=== PATIENT | female | born 1990 | race Caucasian/White ===

== ENCOUNTER 2016-10-19 18:24 | Emergency (ER) | payer OTHER ==
[~2016-10-19] VITALS: Ht 165.1 cm; Wt 59.0 kg
[2016-10-19] MEDS ORDERED: DEXAMETHASONE 4 MG TABLET PO STA (19:19)
[2016-10-19] MEDS ORDERED: IBUPROFEN 400 MG TABLET. PO ONE (19:30)
[2016-10-19] MEDS ORDERED: diphenhydrAMINE HCL 25 MG CAPSULE PO ONE (19:30)
[2016-10-19] MEDS ORDERED: ONDANSETRON ODT 4 MG TAB.RAPDIS. PO ONE (19:30)
[2016-10-19 19:55] VITALS: BP 111/79
[2016-10-19] MEDS ORDERED: PROM12.56 PO (20:13)
--- NOTE | 2016-10-19 20:13 | PHYS DOC ---
Past Medical History Past Medical History: No Pertinent History Past Surgical History: Cholecystectomy, , Tonsillectomy Alcohol Use: Occasionally Drug Use: None Adult General Chief Complaint Chief Complaint: ALLERGIC REACTION HPI HPI Patient is a 26 year old female who presents with 4 days of bilateral periobital swelling/redness/darkening associated with dry cough, rhinorrhea, scratchy throat, nausea and nonbloody diarrhea. Also has frontal achy headache and slight lightheadedness with standing. States she has taken benadryl intermittently with improvement of symptoms. She thinks it started after eating food at a restaurant, but does not know a known exposure. She denies fever or chills, abdominal pain, dysuria, hematuria, vomiting, dizziness, vision changes, numbness, tingling, focal weakness. Review of Systems Review of Systems Constitutional: Denies fever or chills [] Eyes: Denies change in visual acuity, redness, or eye pain [] HENT: Denies nasal congestion or sore throat [] Respiratory: Denies shortness of breath [] Cardiovascular: No additional information not addressed in HPI [] GI: Denies abdominal pain, vomiting, bloody stools or diarrhea [] : Denies dysuria or hematuria [] Musculoskeletal: Denies back pain or joint pain [] Integument: Denies skin lesions [] Neurologic: Denies focal weakness or sensory changes [] Endocrine: Denies polyuria or polydipsia [] Current Medications Current Medications Current Medications Medications (Trade) Dose Ordered Sig/Bryce Start Time Stop Time Status Last Admin Dose Admin Dexamethasone (Decadron) 10 mg 1X STAT 10/19/16 19:19 10/19/16 19:23 DC 10/19/16 19:38 10 MG Diphenhydramine HCl (Benadryl) 25 mg 1X ONCE 10/19/16 19:30 10/19/16 19:31 DC 10/19/16 19:37 25 MG Ibuprofen (Motrin) 400 mg 1X ONCE 10/19/16 19:30 10/19/16 19:31 DC 10/19/16 19:37 400 MG Ondansetron HCl (Zofran Odt) 4 mg 1X ONCE 10/19/16 19:30 10/19/16 19:31 DC 10/19/16 19:38 4 MG Allergies Allergies Allergies Coded Allergies Type Severity Reaction Last Updated Verified No Known Drug Allergies 12/13/13 No Physical Exam Physical Exam Constitutional: Well developed, well nourished, no acute distress, non-toxic appearance. [] HENT: Normocephalic, atraumatic, bilateral external ears normal, oropharynx moist, no oral exudates, nose normal. [] Eyes: PERRLA, EOMI, conjunctiva normal, no discharge. Left greater than right periorbital darkening and redness and swelling with no tenderness/induration/ crepitance/fluctuance [] Neck: Normal range of motion, no tenderness, supple, no stridor. [] Cardiovascular:Heart rate regular rhythm [] Lungs & Thorax: Bilateral breath sounds clear to auscultation [] Abdomen: Bowel sounds normal, soft, no tenderness. [] Skin: Warm, dry, no erythema, no rash. [] Back: No tenderness, no CVA tenderness. [] Extremities: No tenderness, ROM intact, no edema. [] Neurologic: Alert and oriented X 3, normal motor function, normal sensory function, no focal deficits noted, cranial nerves II through XII intact. [] Psychologic: Affect normal, judgement normal, mood normal. [] Current Patient Data Vital Signs Vital Signs Date Time Temp Pulse Resp B/P (MAP) Pulse Ox O2 Delivery O2 Flow Rate FiO2 10/19/16 19:55 84 16 111/79 (90) 96 Room Air 10/19/16 19:01 98.6 98.6 Lab Values Laboratory Tests Test 10/19/16 17:57 POC Urine HCG, Qualitative Hcg negative (Negative) Course & Med Decision Making Course & Med Decision Making Symptoms concerning for viral illness versus environmental allergy. She feels better after medications here. Discussed supportive care. Return precautions given. She understands and agrees with plan. Dragon Disclaimer [place] Disclaimer This electronic medical record was generated, in whole or in part, using a voice recognition dictation system. Departure Departure Impression: Primary Impression: Upper respiratory infection Additional Impression: Diarrhea Disposition: HOME, SELF-CARE Condition: STABLE Referrals: NO PCP (PCP) Patient Instructions: Upper Respiratory Infection, Adult, [id number] Additional Instructions: Take promethazine as needed for nausea. Take Claritin for possible seasonal allergies. Take Tylenol or ibuprofen as needed for pain. Drink liquids to stay hydrated. Follow-up with your primary care doctor. Return for any concerns. Scripts Promethazine Hcl (PROMETHAZINE HCL) 12.5 Mg Tablet 1 TAB PO Q6-8HRS Y for NAUSEA, #10 TAB 0 Refills Prov: Sheila PETERS MD 10/19/16 Problem Qualifiers Primary Impression: Upper respiratory infection URI type: unspecified viral URI Qualified Codes: J06.9 - Acute upper respiratory infection, unspecified; B97.89 - Other viral agents as the cause of diseases classified elsewhere Additional Impression: Diarrhea Diarrhea type: unspecified type Qualified Codes: R19.7 - Diarrhea, unspecified Sheila PETERS MD Oct 19, 2016 20:13
--- NOTE | 2016-10-20 11:05 | EKG ---
[facility] [address] [place] [address] Test Date: 2016-10-19 Test Time: 18:52:31 Pat Name: BRYAN RG Department: Room: Gender: F Safety Supervisor: : 1990 Requested By: Sheila PETERS Order Number: [id number] Reading MD: Autumn Jimenes Measurements Intervals Spencer Rate: 78 P: 58 CO: 146 QRS: 66 QRSD: 86 T: -13 QT: 374 QTc: 430 Interpretive Statements SINUS RHYTHM T ABNORMALITY IN INFERIOR LEADS ABNORMAL ECG RI6.01 No previous ECG available for comparison Electronically Signed On 10-20-2016 19:42:31 CDT by Autumn Jimenes
== END 2016-10-19 20:21 | disposition home or self-care (01) ==
LOC: ER 18:24
DX: J06.9 Acute upper respiratory infection, unspecified (principal); R19.7 Diarrhea, unspecified; R51 Headache; R42 Dizziness and giddiness; Z90.49 Acquired absence of other specified parts of digestive tract; Z90.89 Acquired absence of other organs
CPT/HCPCS: 81025; 93005; 99284; J8540; Q0162; Q0163

== ENCOUNTER 2017-06-06 18:38 | Emergency (ER) | payer OTHER ==
[2017-06-06 20:03] LABS: URINE HCG POC HCG NEGATIVE (Negative)
[2017-06-06 20:11] LABS: BILIRUBIN,URINE SMALL (NEG); CLARITY,URINE CLOUDY; COLOR,URINE AMBER; GLUCOSE,URINE NEGATIVE (NEG); NITRITE,URINE NEGATIVE (NEG); PH,URINE 5.5; PROTEIN,URINE >=300 mg/dL (NEG-TRACE)
[2017-06-06 20:19] LABS: BACTERIA,URINE MANY /HPF (0-FEW); RBC,URINE 0 /HPF (0-2); SQUAMOUS EPITHELIAL CELL,UR MANY /LPF; WBC,URINE 0 /HPF (0-4)
[2017-06-06 21:14] LABS: ADD MAN DIFF? NO
[2017-06-06] MEDS: IV NORMAL SALINE 1000ML BAG 1,000 ML IV (21:17)
[2017-06-06] MEDS: ONDANSETRON PF 4 MG/2 ML VIAL. IV (21:17)
[2017-06-06] MEDS: fentaNYL PF VIAL 100 MCG/2 ML VIAL IV (21:17)
[2017-06-06 21:20] LABS: BASO % 0 % (0-3); EOS # 0.2 x10^3/uL (0.0-0.7); EOS % 2 % (0-3); HEMATOCRIT 29.7 % (36.0-47.0); HEMOGLOBIN 9.9 g/dL (12.0-15.5); LYMPH % 20 % (24-48); MEAN CORPUSCULAR HEMOGLOBIN 27 pg (25-35); MEAN CORPUSCULAR HGB CONC 33 g/dL (31-37); MEAN CORPUSCULAR VOLUME 81 fL (79-100); MONO # 0.7 x10^3/uL (0.0-1.1); MONO % 7 % (0-9); NEUT # 7.1 x10^3uL (1.8-7.7); NEUT % 70 % (31-73); PLATELET COUNT 164 x10^3/uL (140-400); RED BLOOD COUNT 3.67 x10^6/uL (3.50-5.40); RED CELL DISTRIBUTION WIDTH 15.5 % (11.5-14.5); WHITE BLOOD COUNT 10.1 x10^3/uL (4.0-11.0)
[2017-06-06 21:36] LABS: ANION GAP 10 (6-14); BLOOD UREA NITROGEN 7 mg/dL (7-20); BUN/CREATININE RATIO 14 (6-20); CALCIUM 8.1 mg/dL (8.5-10.1); CARBON DIOXIDE 25 mmol/L (21-32); CHLORIDE 105 mmol/L (98-107); CREATININE 0.5 mg/dL (0.6-1.0); GFR 145.9; GLUCOSE 109 mg/dL (70-99); POTASSIUM 4.2 mmol/L (3.5-5.1); SODIUM 140 mmol/L (136-145)
[2017-06-06 21:42] LABS: ALBUMIN 3.4 g/dL (3.4-5.0); ALBUMIN/GLOBULIN RATIO 1.1 (1.0-1.7); ALK PHOS 41 U/L (46-116); ALT (SGPT) 11 U/L (14-59); AST (SGOT) 18 U/L (15-37); LIPASE 168 U/L (73-393); TOTAL BILIRUBIN 0.2 mg/dL (0.2-1.0); TOTAL PROTEIN 6.5 g/dL (6.4-8.2)
[2017-06-06] MEDS: IOHEXOL 300 MG/ML 100ML VIAL. IV (22:26)
[2017-06-06] MEDS ORDERED: CONTRAST GIVEN MC (22:30)
== END 2017-06-07 00:20 | disposition home or self-care (01) ==
LOC: ER 06-07 00:20
DX: R10.30 Lower abdominal pain, unspecified (principal); Z98.51 Tubal ligation status; Z90.49 Acquired absence of other specified parts of digestive tract
CPT/HCPCS: 36415; 74177; 80053; 81001; 81025; 83690; 85025; 87086; 96361; 96374; 96375; 99285-25; J2405; J3010; J7030; Q9967

== ENCOUNTER 2017-06-10 16:30 | Emergency (ER) | payer OTHER ==
[2017-06-10 17:45] LABS: ADD MAN DIFF? NO
[2017-06-10 17:46] LABS: URINE HCG POC HCG NEGATIVE (Negative)
[2017-06-10 17:47] LABS: BASO # 0.1 x10^3/uL (0.0-0.2); BASO % 1 % (0-3); EOS # 0.2 x10^3/uL (0.0-0.7); EOS % 3 % (0-3); HEMATOCRIT 32.6 % (36.0-47.0); HEMOGLOBIN 10.9 g/dL (12.0-15.5); LYMPH # 2.1 x10^3/uL (1.0-4.8); LYMPH % 31 % (24-48); MEAN CORPUSCULAR HEMOGLOBIN 27 pg (25-35); MEAN CORPUSCULAR HGB CONC 34 g/dL (31-37); MEAN CORPUSCULAR VOLUME 81 fL (79-100); MONO # 0.5 x10^3/uL (0.0-1.1); MONO % 7 % (0-9); NEUT % 58 % (31-73); PLATELET COUNT 198 x10^3/uL (140-400); RED BLOOD COUNT 4.05 x10^6/uL (3.50-5.40); RED CELL DISTRIBUTION WIDTH 15.6 % (11.5-14.5); WHITE BLOOD COUNT 6.9 x10^3/uL (4.0-11.0)
[2017-06-10 17:53] LABS: BILIRUBIN,URINE NEGATIVE (NEG); CLARITY,URINE CLOUDY; COLOR,URINE YELLOW; GLUCOSE,URINE NEGATIVE (NEG); NITRITE,URINE NEGATIVE (NEG); PROTEIN,URINE >=300 mg/dL (NEG-TRACE); UROBILINOGEN,URINE 0.2 mg/dL (0.2 mg/dL)
[2017-06-10 18:00] LABS: ANION GAP 4 (6-14); BLOOD UREA NITROGEN 5 mg/dL (7-20); BUN/CREATININE RATIO 8 (6-20); CALCIUM 8.7 mg/dL (8.5-10.1); CARBON DIOXIDE 31 mmol/L (21-32); CHLORIDE 104 mmol/L (98-107); CREATININE 0.6 mg/dL (0.6-1.0); GFR 118.2; GLUCOSE 99 mg/dL (70-99); POTASSIUM 3.7 mmol/L (3.5-5.1); SODIUM 139 mmol/L (136-145)
[2017-06-10 18:05] LABS: AMORPHOUS SEDIMENT,UR PRESENT /HPF; BACTERIA,URINE MODERATE /HPF (0-FEW); SQUAMOUS EPITHELIAL CELL,UR MANY /LPF
[2017-06-10 18:06] LABS: ALBUMIN 3.5 g/dL (3.4-5.0); ALK PHOS 39 U/L (46-116); ALT (SGPT) 14 U/L (14-59); AST (SGOT) 16 U/L (15-37); TOTAL BILIRUBIN 0.2 mg/dL (0.2-1.0); TOTAL PROTEIN 6.9 g/dL (6.4-8.2)
[2017-06-10] MEDS: KETOROLAC 60 MG/2 ML INJ. IM ×2 (18:28)
== END 2017-06-10 19:16 | disposition home or self-care (01) ==
LOC: ER 16:30
DX: N93.8 Other specified abnormal uterine and vaginal bleeding (principal); Z98.51 Tubal ligation status; Z90.49 Acquired absence of other specified parts of digestive tract; Z98.890 Other specified postprocedural states
CPT/HCPCS: 36415; 76830; 76856; 80053; 81001; 81025; 85025; 87086; 96372; 99285-25; J1885

== ENCOUNTER 2017-08-01 07:41 | Observation (INO) | payer OTHER ==
[~2017-08-01 07:41] MED LIST: HYDROmorphone 2 MG/ML VIAL IV; LIDOCAINE 1% PF 2 ML VIAL. ID; MORPHINE SULFATE 2 MG/ML DISP.SYRIN. IV; ONDANSETRON PF 4 MG/2 ML VIAL. IV; fentaNYL PF VIAL 100 MCG/2 ML VIAL IV
[2017-08-01 08:30] LABS: NEG OBC UR NEG; POS OBC UR POS; U PREG PATIENT NEGATIVE (NEG)
[2017-08-01 08:44] LABS: ADD MAN DIFF? NO
[2017-08-01] MEDS: IV RINGERS,LACTATED 1000ML 1,000 ML IV ×2 (08:45→12:04)
[2017-08-01 08:47] LABS: BASO % 1 % (0-3); EOS # 0.2 x10^3/uL (0.0-0.7); EOS % 3 % (0-3); HEMATOCRIT 30.7 % (36.0-47.0); HEMOGLOBIN 10.3 g/dL (12.0-15.5); LYMPH # 2.6 x10^3/uL (1.0-4.8); LYMPH % 41 % (24-48); MEAN CORPUSCULAR HEMOGLOBIN 27 pg (25-35); MEAN CORPUSCULAR HGB CONC 34 g/dL (31-37); MEAN CORPUSCULAR VOLUME 80 fL (79-100); MONO # 0.5 x10^3/uL (0.0-1.1); MONO % 8 % (0-9); NEUT % 48 % (31-73); PLATELET COUNT 186 x10^3/uL (140-400); RED BLOOD COUNT 3.85 x10^6/uL (3.50-5.40); RED CELL DISTRIBUTION WIDTH 15.8 % (11.5-14.5); WHITE BLOOD COUNT 6.3 x10^3/uL (4.0-11.0)
[2017-08-01] MEDS ORDERED: PROPOFOL 20 ML IV (09:19)
[2017-08-01] MEDS ORDERED: ROCURONIUM 50 MG/5 ML VIAL. (09:20)
[2017-08-01] MEDS ORDERED: fentaNYL PF VIAL 100 MCG/2 ML VIAL (09:20)
[2017-08-01] MEDS ORDERED: LIDOCAINE 1% PF 5 ML VIAL. (10:22)
[2017-08-01] MEDS ORDERED: DESFLURANE 61 TO 120 MINUTES IH (10:42)
[2017-08-01] MEDS ORDERED: DEXAMETHASONE SOD PHOS 20 MG/5 ML VIAL. (10:42)
[2017-08-01] MEDS ORDERED: GLYCOPYRROLATE 1 MG/5 ML VIAL. (10:45)
[2017-08-01] MEDS ORDERED: ONDANSETRON PF 4 MG/2 ML VIAL. (10:45)
[2017-08-01] MEDS: BUPIVACAINE-EPI 0.25%-1:200000 50 ML VIAL. (10:52)
[2017-08-01] MEDS: LIDOCAINE 1%/EPI 1:100,000 20 ML VIAL. (10:52)
[2017-08-01] MEDS ORDERED: KETOROLAC 30 MG/ML INJ FOR OR. INJ (11:35)
[2017-08-01] MEDS ORDERED: KETOROLAC 30 MG/ML INJ. IV (12:00)
[2017-08-01] MEDS ORDERED: PROCHLORPERAZINE 10 MG/2 ML VIAL. IV (12:00)
[2017-08-01] MEDS ORDERED: SIMETHICONE 80 MG TAB.CHEW PO (12:00)
[2017-08-01] MEDS ORDERED: diphenhydrAMINE 50 MG/ML VIAL IV (12:00)
[2017-08-01] MEDS ORDERED: CALCIUM CARBONATE 500 MG TAB.CHEW PO (12:00)
[2017-08-01] MEDS ORDERED: diphenhydrAMINE HCL 25 MG CAPSULE PO (12:00)
[2017-08-01] MEDS ORDERED: ZOLPIDEM 5 MG TABLET. PO (12:00)
[2017-08-01] MEDS ORDERED: DEXTROSE 50% 25 GM / 50ML DISP.SYRIN. IV (12:00)
[2017-08-01] MEDS ORDERED: 0.9 % SODIUM CHLORIDE 10 ML DISP.SYRIN. IV (12:00)
[2017-08-01] MEDS ORDERED: ONDANSETRON PF 4 MG/2 ML VIAL. IV (12:00)
[2017-08-01] MEDS: PROCHLORPERAZINE 10 MG/2 ML VIAL. IV (12:06)
[2017-08-01] MEDS: fentaNYL PF VIAL 100 MCG/2 ML VIAL IV ×2 (12:07→12:28)
[2017-08-01] MEDS: oxyCODONE/APAP 5/325 1 TAB TABLET PO ×3 (14:08→23:46)
[2017-08-01] MEDS: GABAPENTIN 300 MG CAPSULE. PO ×2 (16:52→21:50)
[2017-08-02] MEDS: oxyCODONE/APAP 5/325 1 TAB TABLET PO ×2 (06:28→11:14)
[2017-08-02] MEDS: GABAPENTIN 300 MG CAPSULE. PO (06:28)
[2017-08-02 07:44] LABS: ADD MAN DIFF? NO
[2017-08-02 07:48] LABS: BASO % 0 % (0-3); EOS % 0 % (0-3); HEMATOCRIT 26.9 % (36.0-47.0); HEMOGLOBIN 8.8 g/dL (12.0-15.5); LYMPH # 2.5 x10^3/uL (1.0-4.8); LYMPH % 19 % (24-48); MEAN CORPUSCULAR HEMOGLOBIN 26 pg (25-35); MEAN CORPUSCULAR HGB CONC 33 g/dL (31-37); MEAN CORPUSCULAR VOLUME 81 fL (79-100); MONO # 0.9 x10^3/uL (0.0-1.1); MONO % 7 % (0-9); NEUT # 9.9 x10^3uL (1.8-7.7); NEUT % 75 % (31-73); PLATELET COUNT 157 x10^3/uL (140-400); RED BLOOD COUNT 3.35 x10^6/uL (3.50-5.40); RED CELL DISTRIBUTION WIDTH 15.8 % (11.5-14.5); WHITE BLOOD COUNT 13.3 x10^3/uL (4.0-11.0)
[2017-08-02] MEDS: IBUPROFEN 800 MG TABLET. PO (09:23)
== END 2017-08-02 15:10 | disposition home or self-care (01) ==
LOC: SURG 07:41 → 3 NORTH 11:57
DX: D25.9 Leiomyoma of uterus, unspecified (principal); N93.9 Abnormal uterine and vaginal bleeding, unspecified
CPT/HCPCS: 36415; 81025; 85025; 86850; 86900; 86901; A4215; G0378; G0379; J0690; J0780; J1100; J1885; J2405; J2704; J3010; J3490; J7030; J7120

== ENCOUNTER 2017-08-15 18:06 | Emergency (ER) | payer OTHER ==
[2017-08-15 18:35] LABS: BILIRUBIN,URINE SMALL (NEG); CLARITY,URINE CLOUDY; COLOR,URINE AMBER; GLUCOSE,URINE NEGATIVE (NEG); NITRITE,URINE NEGATIVE (NEG); PROTEIN,URINE >=300 mg/dL (NEG-TRACE)
[2017-08-15 18:47] LABS: AMORPHOUS SEDIMENT,UR PRESENT /HPF; BACTERIA,URINE MODERATE /HPF (0-FEW); RBC,URINE OCC /HPF (0-2); SQUAMOUS EPITHELIAL CELL,UR MOD /LPF
[2017-08-15 18:55] LABS: ADD MAN DIFF? NO
[2017-08-15 18:57] LABS: BASO # 0.1 x10^3/uL (0.0-0.2); BASO % 1 % (0-3); EOS # 0.1 x10^3/uL (0.0-0.7); EOS % 1 % (0-3); HEMATOCRIT 37.5 % (36.0-47.0); HEMOGLOBIN 12.4 g/dL (12.0-15.5); LYMPH # 1.9 x10^3/uL (1.0-4.8); LYMPH % 21 % (24-48); MEAN CORPUSCULAR HEMOGLOBIN 27 pg (25-35); MEAN CORPUSCULAR HGB CONC 33 g/dL (31-37); MEAN CORPUSCULAR VOLUME 80 fL (79-100); MONO # 0.6 x10^3/uL (0.0-1.1); MONO % 7 % (0-9); NEUT # 6.6 x10^3uL (1.8-7.7); NEUT % 71 % (31-73); PLATELET COUNT 303 x10^3/uL (140-400); RED BLOOD COUNT 4.68 x10^6/uL (3.50-5.40); RED CELL DISTRIBUTION WIDTH 15.9 % (11.5-14.5); WHITE BLOOD COUNT 9.4 x10^3/uL (4.0-11.0)
[2017-08-15 19:13] LABS: ANION GAP 12 (6-14); BLOOD UREA NITROGEN 8 mg/dL (7-20); BUN/CREATININE RATIO 10 (6-20); CALCIUM 9.5 mg/dL (8.5-10.1); CARBON DIOXIDE 25 mmol/L (21-32); CHLORIDE 103 mmol/L (98-107); CREATININE 0.8 mg/dL (0.6-1.0); GFR 84.8; GLUCOSE 96 mg/dL (70-99); POTASSIUM 3.8 mmol/L (3.5-5.1); SODIUM 140 mmol/L (136-145)
[2017-08-15] MEDS: IV NORMAL SALINE 1000ML BAG 1,000 ML IV (19:16)
[2017-08-15 19:28] LABS: ALBUMIN 4.1 g/dL (3.4-5.0); ALK PHOS 48 U/L (46-116); ALT (SGPT) 15 U/L (14-59); AST (SGOT) 14 U/L (15-37); CREATINE KINASE 57 U/L (26-192); MAGNESIUM 1.7 mg/dL (1.8-2.4); TOTAL BILIRUBIN 0.4 mg/dL (0.2-1.0); TOTAL PROTEIN 8.4 g/dL (6.4-8.2)
[2017-08-15] MEDS: MAGNESIUM OXIDE 400 MG TABLET PO (19:40)
== END 2017-08-15 20:30 | disposition home or self-care (01) ==
LOC: ER 18:06
DX: E86.0 Dehydration (principal); R42 Dizziness and giddiness
CPT/HCPCS: 36415; 71045; 80053; 81001; 82550; 83735; 85025; 87086; 93005; 96360; 99285-25; J7030

== ENCOUNTER 2017-11-15 20:48 | Emergency (ER) | payer OTHER | END 2017-11-15 21:57 | disposition home or self-care (01) | LOC: ER 20:48 | DX: S80.12XA Contusion of left lower leg, initial encounter (principal); W18.09XA Striking against other object with subsequent fall, initial encounter; Y93.89 Activity, other specified; Y99.8 Other external cause status; Y92.89 Other specified places as the place of occurrence of the external cause | CPT/HCPCS: 73590; 99284 ==

== ENCOUNTER 2018-01-23 18:00 | Emergency (ER) | payer OTHER ==
[~2018-01-23] VITALS: Ht 165.1 cm; Wt 54.4 kg
[~2018-01-23 18:00] MED LIST changes: +DOCU-109 PO; +FERR325T14 PO; +HYDR-2758 PO; +HYDR-971 PO; -HYDROmorphone 2 MG/ML VIAL IV; +IBUP-1027 PO; +IBUP-1060 PO; -LIDOCAINE 1% PF 2 ML VIAL. ID; -MORPHINE SULFATE 2 MG/ML DISP.SYRIN. IV; +NAPR-514 PO; -ONDANSETRON PF 4 MG/2 ML VIAL. IV; +OXYC-323 PO; +PROM12.56 PO; -fentaNYL PF VIAL 100 MCG/2 ML VIAL IV
[2018-01-23] MEDS ORDERED: IV NORMAL SALINE 1000ML BAG 1,000 ML IV ONE (18:45)
[2018-01-23] MEDS ORDERED: fentaNYL PF VIAL 100 MCG/2 ML VIAL IV ONE (18:45)
--- NOTE | 2018-01-23 18:49 | PHYS DOC ---
Past Medical History Past Medical History: No Pertinent History, Other Additional Past Medical Histor: fibroids Past Surgical History: Cholecystectomy, , Hysterectomy, Tubal ligation Alcohol Use: None Drug Use: None Adult General Chief Complaint Chief Complaint: RECTAL BLEED [facility] HPI Patient is a 27 year old female who presents with rectal bleeding 2 weeks. She feels lightheaded when she stands up she has a hemorrhoid that "popped out" yesterday. Review of Systems Review of Systems Constitutional: Denies fever or chills [] Eyes: Denies change in visual acuity, redness, or eye pain [] HENT: Denies nasal congestion or sore throat [] Respiratory: Denies cough or shortness of breath [] Cardiovascular: No additional information not addressed in HPI [] GI: Intermittent abdominal pain with the rectal bleeding She is status post hysterectomy. Musculoskeletal: Denies back pain or joint pain [] Integument: Denies rash or skin lesions [] Neurologic: Denies headache, focal weakness or sensory changes [] Endocrine: Denies polyuria or polydipsia [] All other systems were reviewed and found to be within normal limits, except as documented in this note. Current Medications Current Medications Current Medications Medications (Trade) Dose Ordered Sig/Bryce Start Time Stop Time Status Last Admin Dose Admin Fentanyl Citrate (Fentanyl 2ml Vial) 50 mcg 1X ONCE 01/23/18 18:45 01/23/18 18:46 DC 01/23/18 19:10 50 MCG Sodium Chloride 1,000 ml @ 1,000 mls/hr 1X ONCE 01/23/18 18:45 01/23/18 19:44 01/23/18 19:09 1,000 MLS/HR Allergies Allergies Allergies Coded Allergies Type Severity Reaction Last Updated Verified No Known Drug Allergies 08/01/17 No Physical Exam Physical Exam Constitutional: Well developed, well nourished, no acute distress, non-toxic appearance. [] HENT: Normocephalic, atraumatic, bilateral external ears normal, oropharynx moist, no oral exudates, nose normal. [] Eyes: PERRLA, EOMI, conjunctiva normal, no discharge. [] Neck: Normal range of motion, no tenderness, supple, no stridor. [] Pulmonary: Normal respiratory effort no increased work of breathing no obvious chest wall trauma Abdomen: Bowel sounds normal, soft, mild left lower quadrant tenderness, no masses, no pulsatile masses. [] Rectal exam shows a visible external hemorrhoid that looks like it may have been recently bleeding Skin: Warm, dry, no erythema, no rash. [] Back: No tenderness, no CVA tenderness. [] Extremities: No tenderness, no cyanosis, no clubbing, ROM intact, no edema. [] Neurologic: Alert and oriented X 3, normal motor function, normal sensory function, no focal deficits noted. [] Psychologic: Affect normal, judgement normal, mood normal. [] Current Patient Data Vital Signs Vital Signs Date Time Temp Pulse Resp B/P (MAP) Pulse Ox O2 Delivery O2 Flow Rate FiO2 01/23/18 19:10 18 99 01/23/18 18:14 98.6 88 121/71 (88) Room Air 98.6 Lab Values Laboratory Tests Test 01/23/18 18:45 01/23/18 18:55 Stool Occult Blood Positive (NEG) White Blood Count 9.8 x10^3/uL (4.0-11.0) Red Blood Count 4.89 x10^6/uL (3.50-5.40) Hemoglobin 14.3 g/dL (12.0-15.5) Hematocrit 41.0 % (36.0-47.0) Mean Corpuscular Volume 84 fL (79-100) Mean Corpuscular Hemoglobin 29 pg (25-35) Mean Corpuscular Hemoglobin Concent 35 g/dL (31-37) Red Cell Distribution Width 15.2 % (11.5-14.5) H Platelet Count 206 x10^3/uL (140-400) Neutrophils (%) (Auto) 78 % (31-73) H Lymphocytes (%) (Auto) 16 % (24-48) L Monocytes (%) (Auto) 6 % (0-9) Eosinophils (%) (Auto) 0 % (0-3) Basophils (%) (Auto) 0 % (0-3) Neutrophils # (Auto) 7.6 x10^3uL (1.8-7.7) Lymphocytes # (Auto) 1.6 x10^3/uL (1.0-4.8) Monocytes # (Auto) 0.6 x10^3/uL (0.0-1.1) Eosinophils # (Auto) 0.0 x10^3/uL (0.0-0.7) Basophils # (Auto) 0.0 x10^3/uL (0.0-0.2) Prothrombin Time 13.7 SEC (11.7-14.0) Prothrombin Time INR 1.1 (0.8-1.1) Sodium Level 140 mmol/L (136-145) Potassium Level 3.5 mmol/L (3.5-5.1) Chloride Level 102 mmol/L (98-107) Carbon Dioxide Level 26 mmol/L (21-32) Anion Gap 12 (6-14) Blood Urea Nitrogen 8 mg/dL (7-20) Creatinine 0.7 mg/dL (0.6-1.0) Estimated GFR (Cockcroft-Gault) 98.9 BUN/Creatinine Ratio 11 (6-20) Glucose Level 102 mg/dL (70-99) H Calcium Level 9.9 mg/dL (8.5-10.1) Total Bilirubin 0.4 mg/dL (0.2-1.0) Aspartate Amino Transferase (AST) 13 U/L (15-37) L Alanine Aminotransferase (ALT) 15 U/L (14-59) Alkaline Phosphatase 45 U/L (46-116) L Total Protein 8.5 g/dL (6.4-8.2) H Albumin 4.4 g/dL (3.4-5.0) Albumin/Globulin Ratio 1.1 (1.0-1.7) Lipase 89 U/L (73-393) Laboratory Tests 01/23/18 18:55 Laboratory Tests 01/23/18 18:55 EKG EKG [] Radiology/Procedures Radiology/Procedures [] Course & Med Decision Making Course & Med Decision Making Pertinent Labs and Imaging studies reviewed. (See chart for details) []Bleeding and 27-year-old otherwise healthy female status post hysterectomy hemoglobin is normal vitals are normal no stool in the vault there is no external hemorrhoid I think that is probably the source. Recommended conservative hemorrhoid treatment follow-up with primary care doctor for referral to GI if the symptoms persist Dragon Disclaimer Dragon Disclaimer This electronic medical record was generated, in whole or in part, using a voice recognition dictation system. Departure Departure Impression: Primary Impression: Hemorrhoid Disposition: HOME, SELF-CARE Condition: STABLE Referrals: NO PCP (PCP) Scripts Psyllium Husk (Metamucil) 660 Gm Powder 660 GM PO DAILY for 7 Days, #1 MISC Prov: KIERSTEN HAGAN MD 01/23/18 Hydrocortisone Acetate (ANUSOL-HC) 25 Mg Supp.rect 1 SUPP RC BID, #14 SUPP Prov: KIERSTEN HAGAN MD 01/23/18 KIERSTEN HAGAN MD Jan 23, 2018 18:49
[2018-01-23 19:06] LABS: BASO % 0 % (0-3); EOS % 0 % (0-3); HEMOGLOBIN 14.3 g/dL (12.0-15.5); LYMPH # 1.6 x10^3/uL (1.0-4.8); LYMPH % 16 % (24-48); MEAN CORPUSCULAR HEMOGLOBIN 29 pg (25-35); MEAN CORPUSCULAR HGB CONC 35 g/dL (31-37); MEAN CORPUSCULAR VOLUME 84 fL (79-100); MONO # 0.6 x10^3/uL (0.0-1.1); MONO % 6 % (0-9); NEUT # 7.6 x10^3uL (1.8-7.7); NEUT % 78 % (31-73); PLATELET COUNT 206 x10^3/uL (140-400); RED BLOOD COUNT 4.89 x10^6/uL (3.50-5.40); RED CELL DISTRIBUTION WIDTH 15.2 % (11.5-14.5); WHITE BLOOD COUNT 9.8 x10^3/uL (4.0-11.0)
[2018-01-23] MEDS ORDERED: HYDR25SU18 RC (19:15)
[2018-01-23] MEDS ORDERED: PSYL660P18 PO (19:15)
[2018-01-23 19:16] LABS: PROTHROMBIN TIME PATIENT 13.7 SEC (11.7-14.0)
[2018-01-23 19:19] LABS: CALCIUM 9.9 mg/dL (8.5-10.1); CREATININE 0.7 mg/dL (0.6-1.0); GFR 98.9; POTASSIUM 3.5 mmol/L (3.5-5.1)
[2018-01-23 19:23] LABS: FECAL OB PT POSITIVE (NEG)
[2018-01-23 19:25] LABS: ALBUMIN 4.4 g/dL (3.4-5.0); ALBUMIN/GLOBULIN RATIO 1.1 (1.0-1.7); TOTAL BILIRUBIN 0.4 mg/dL (0.2-1.0); TOTAL PROTEIN 8.5 g/dL (6.4-8.2)
[2018-01-23 19:35] VITALS: BP 124/58
== END 2018-01-23 19:47 | disposition home or self-care (01) ==
LOC: ER 18:00
DX: K64.4 Residual hemorrhoidal skin tags (principal); R42 Dizziness and giddiness; Z90.49 Acquired absence of other specified parts of digestive tract; Z98.890 Other specified postprocedural states; Z90.710 Acquired absence of both cervix and uterus; Z98.51 Tubal ligation status
CPT/HCPCS: 36415; 80053; 82274; 83690; 85025; 85610; 96361; 96374; 99284; J3010; J7030

== ENCOUNTER 2018-03-19 14:51 | Emergency (ER) | payer OTHER ==
[~2018-03-19] VITALS: Ht 165.1 cm; Wt 54.4 kg
[~2018-03-19 14:51] MED LIST changes: +HYDR25SU18 RC; +PSYL660P18 PO
[2018-03-19 14:58] VITALS: BP 166/74
[2018-03-19] MEDS ORDERED: ORPHENADRINE CITRATE 60 MG/2 ML VIAL. IM ONE (15:15)
[2018-03-19] MEDS ORDERED: KETOROLAC 60 MG/2 ML INJ. IM ONE (15:15)
[2018-03-19] MEDS ORDERED: ORPH100T PO (15:16)
[2018-03-19] MEDS ORDERED: IBUP-1007 PO (15:16)
--- NOTE | 2018-03-19 15:16 | PHYS DOC ---
Past Medical History Past Medical History: No Pertinent History, Other Additional Past Medical Histor: fibroids Past Surgical History: Cholecystectomy, , Hysterectomy, Tubal ligation Alcohol Use: None Drug Use: None Adult General Chief Complaint Chief Complaint: LOWER EXT PAIN HPI HPI Patient is a 28 year old female who presents with bilateral leg pain starts in her Goes up to Her Thighs. Patient States the Pain Is Dull and Sometimes Sharp Especially at Night. Patient States That She If She Puts One Leg up and Elevated on Top of the Back of the Couch That It Does Relieve the Pain. 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 Patient States That the Pain Started Shortly after That. His Pain an 8 Out Of 10. She States She Has Not Taken Any Pain Medication to Try to Get the Pain Go Away. Patient's Only past Medical History hysterectomy and she has no known drug allergies. She states that she does smoke cigarettes but does not take any medications or controls. Review of Systems Review of Systems Constitutional: Denies fever or chills [] Eyes: Denies change in visual acuity, redness, or eye pain [] HENT: Denies nasal congestion or sore throat [] Respiratory: Denies cough or shortness of breath [] Cardiovascular: No additional information not addressed in HPI [] GI: Denies abdominal pain, nausea, vomiting, bloody stools or diarrhea [] : Denies dysuria or hematuria [] Musculoskeletal: Bilateral leg pain. Denies back pain or joint pain [] Integument: Denies rash or skin lesions [] Neurologic: Denies headache, focal weakness or sensory changes [] Endocrine: Denies polyuria or polydipsia [] All other systems were reviewed and found to be within normal limits, except as documented in this note. Current Medications Current Medications Current Medications Medications (Trade) Dose Ordered Sig/Bryce Start Time Stop Time Status Last Admin Dose Admin Ketorolac Tromethamine (Toradol Im) 60 mg 1X ONCE 03/19/18 15:15 03/19/18 15:16 DC 03/19/18 15:28 60 MG Orphenadrine Citrate (Norflex) 60 mg 1X ONCE 03/19/18 15:15 03/19/18 15:16 DC 03/19/18 15:28 60 MG Allergies Allergies Allergies Coded Allergies Type Severity Reaction Last Updated Verified No Known Drug Allergies 08/01/17 No Physical Exam Physical Exam Constitutional: Well developed, well nourished, no acute distress, non-toxic appearance. [] HENT: Normocephalic, atraumatic, bilateral external ears normal, oropharynx moist, no oral exudates, nose normal. [] Eyes: PERRLA, EOMI, conjunctiva normal, no discharge. [] Neck: Normal range of motion, no tenderness, supple, no stridor. [] Cardiovascular:Heart rate regular rhythm, no murmur [] Lungs & Thorax: Bilateral breath sounds clear to auscultation [] Abdomen: Bowel sounds normal, soft, no tenderness, no masses, no pulsatile masses. [] Skin: Warm, dry, no erythema, no rash. [] Back: No tenderness, no CVA tenderness. [] Extremities: Bilateral leg pain with tenderness to palpation all the way up to her thighs. No tenderness, no cyanosis, no clubbing, ROM intact, no edema. [] Neurologic: Alert and oriented X 3, normal motor function, normal sensory function, no focal deficits noted. [] Psychologic: Affect normal, judgement normal, mood normal. [] Current Patient Data Vital Signs Vital Signs Date Time Temp Pulse Resp B/P (MAP) Pulse Ox O2 Delivery O2 Flow Rate FiO2 03/19/18 14:58 98.0 75 18 166/74 (104) 98 Room Air 98.0 EKG EKG [] Radiology/Procedures Radiology/Procedures [] Impressions: [facility] [address] [place], [place] [id number] IMAGING REPORT Signed PATIENT: BRYAN RG ACCOUNT: [id number] : 1990 LOCATION: ER AGE: 28 SEX: F EXAM STATUS: REG ER ORD. PHYSICIAN: NIRALI DALE APRN REASON: nerve pain in legs PROCEDURE: LUMBAR SPINE 2-3V Lumbar spine, 3 views, 03/19/2018: HISTORY: Bilateral leg pain The lumbar vertebral heights and intervertebral disc spaces are well-maintained. No fracture or subluxation is evident. Surgical clips are projected over the right paraspinous region. IMPRESSION: No acute bony abnormality is detected. Electronically signed by: Gabe Dorsey MD (03/19/2018 3:40 PM) [facility] DICTATED and SIGNED BY: GABE DORSEY MD DATE: 03/19/18 1539 Course & Med Decision Making Course & Med Decision Making Patient is a 28 year old female who presents with bilateral leg pain starts in her Goes up to Her Thighs. Patient States the Pain Is Dull and Sometimes Sharp Especially at Night. Patient States That She If She Puts One Leg up and Elevated on Top of the Back of the Couch That It Does Relieve the Pain. 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 Patient States That the Pain Started Shortly after That. His Pain an 8 Out Of 10. She States She Has Not Taken Any Pain Medication to Try to Get the Pain Go Away. Patient's Only past Medical History hysterectomy and she has no known drug allergies. She states that she does smoke cigarettes but does not take any medications or controls. Alert and oriented and neurologically intact. Patient has no weaknesses, numbness, or tingling. Vital Signs are stable. Patient has no extremity edema. Skin is pink warm and dry. Bilateral pedal pulses present. Patient is given IM shot of Norflex and Toradol. Patient's lumbar x-ray shows no acute findings. Patient is sent home with a prescription of Norflex and ibuprofen. She is told to follow-up with the primary care provider if she is not getting any better and to try not to lift things heavy for a while. [] Dragon Disclaimer Dragon Disclaimer This electronic medical record was generated, in whole or in part, using a voice recognition dictation system. Departure Departure Impression: Primary Impression: Bilateral leg pain Disposition: HOME, SELF-CARE Condition: STABLE Referrals: NO PCP (PCP) Patient Instructions: Leg Cramps, Sciatica Additional Instructions: Follow-up her primary care if needed. Take the NSAIDs and muscle relaxer as needed for pain. Tried not to do any more heavy lifting possible. Scripts Ibuprofen (IBUPROFEN) 600 Mg Tablet 600 MG PO PRN Q6HRS PRN for INFLAMMATION, #30 TAB Prov: BAFUSNIRALI APRN 03/19/18 Orphenadrine Citrate (ORPHENADRINE CITRATE) 100 Mg Tablet.er 1 TAB PO BID, #30 TAB 1 Refill Prov: NIRALI DALE APRN 03/19/18 NIRALI DALE APRN Mar 19, 2018 15:16
--- NOTE | 2018-03-19 15:44 | RAD ---
Lumbar spine, 3 views, 03/19/2018: HISTORY: Bilateral leg pain The lumbar vertebral heights and intervertebral disc spaces are well-maintained. No fracture or subluxation is evident. Surgical clips are projected over the right paraspinous region. IMPRESSION: No acute bony abnormality is detected. Electronically signed by: Gabe Alex MD (03/19/2018 3:40 PM) [facility]
== END 2018-03-19 15:49 | disposition home or self-care (01) ==
LOC: ER 14:51
DX: M79.604 Pain in right leg (principal); M79.605 Pain in left leg; Z90.49 Acquired absence of other specified parts of digestive tract; Z98.890 Other specified postprocedural states; Z90.710 Acquired absence of both cervix and uterus; Z98.51 Tubal ligation status
CPT/HCPCS: 72100; 96372; 99284; J1885; J2360

== ENCOUNTER 2018-05-08 19:35 | Emergency (ER) | payer OTHER ==
[~2018-05-08] VITALS: Ht 165.1 cm; Wt 48.5 kg
[~2018-05-08 19:35] MED LIST changes: -HYDR-2758 PO; +HYDR-2761 PO; +HYDR-3164 PO; -HYDR-971 PO; +IBUP-1007 PO; +ORPH100T PO; -OXYC-323 PO; +OXYC1TAB15 PO
[2018-05-08 20:07] LABS: BASO % 1 % (0-3); EOS # 0.2 x10^3/uL (0.0-0.7); EOS % 2 % (0-3); HEMATOCRIT 34.3 % (36.0-47.0); HEMOGLOBIN 12.2 g/dL (12.0-15.5); LYMPH # 2.3 x10^3/uL (1.0-4.8); LYMPH % 29 % (24-48); MEAN CORPUSCULAR HEMOGLOBIN 31 pg (25-35); MEAN CORPUSCULAR HGB CONC 36 g/dL (31-37); MEAN CORPUSCULAR VOLUME 87 fL (79-100); MONO # 0.4 x10^3/uL (0.0-1.1); MONO % 5 % (0-9); NEUT % 64 % (31-73); PLATELET COUNT 133 x10^3/uL (140-400); RED BLOOD COUNT 3.93 x10^6/uL (3.50-5.40); RED CELL DISTRIBUTION WIDTH 13.6 % (11.5-14.5); WHITE BLOOD COUNT 7.9 x10^3/uL (4.0-11.0)
[2018-05-08 20:09] LABS: BILIRUBIN,URINE NEGATIVE (NEG); CLARITY,URINE CLEAR; COLOR,URINE YELLOW; NITRITE,URINE NEGATIVE (NEG); PROTEIN,URINE NEGATIVE (NEG-TRACE); UROBILINOGEN,URINE 0.2 mg/dL (0.2 mg/dL)
[2018-05-08 20:15] LABS: CALCIUM 8.8 mg/dL (8.5-10.1); CREATININE 0.8 mg/dL (0.6-1.0); GFR 84.2; POTASSIUM 3.5 mmol/L (3.5-5.1)
[2018-05-08 20:19] LABS: BACTERIA,URINE MODERATE /HPF (0-FEW); RBC,URINE 0 /HPF (0-2); SQUAMOUS EPITHELIAL CELL,UR MOD /LPF
[2018-05-08 20:23] LABS: ALBUMIN 3.4 g/dL (3.4-5.0); ALBUMIN/GLOBULIN RATIO 0.9 (1.0-1.7); MAGNESIUM 1.6 mg/dL (1.8-2.4); TOTAL BILIRUBIN 0.2 mg/dL (0.2-1.0)
[2018-05-08] MEDS ORDERED: MAGNESIUM CHLORIDE ER 64 MG TABLET.ER PO ONE (21:00)
[2018-05-08 21:13] VITALS: BP 114/72
[2018-05-08] MEDS ORDERED: PROPARACAINE/FLUORESCEIN 0.5 ML OPHTH DROPS. OS ONE (21:15)
[2018-05-08] MEDS ORDERED: CLIN300C8 PO (21:30)
--- NOTE | 2018-05-08 21:31 | PHYS DOC ---
Past Medical History Past Medical History: No Pertinent History, Other Additional Past Medical Histor: fibroids Past Surgical History: Cholecystectomy, , Hysterectomy, Tubal ligation Alcohol Use: None Drug Use: None Adult General Chief Complaint Chief Complaint: EYE PROBLEMS [facility] HPI Patient is a 28 year old [f__sex] who presents with [] Review of Systems Review of Systems Constitutional: Denies fever or chills [] Eyes: Denies change in visual acuity, redness, or eye pain [] HENT: Denies nasal congestion or sore throat [] Respiratory: Denies cough or shortness of breath [] Cardiovascular: No additional information not addressed in HPI [] GI: Denies abdominal pain, nausea, vomiting, bloody stools or diarrhea [] : Denies dysuria or hematuria [] Musculoskeletal: Denies back pain or joint pain [] Integument: Denies rash or skin lesions [] Neurologic: Denies headache, focal weakness or sensory changes [] Endocrine: Denies polyuria or polydipsia [] All other systems were reviewed and found to be within normal limits, except as documented in this note. Current Medications Current Medications Current Medications Medications (Trade) Dose Ordered Sig/Bryce Start Time Stop Time Status Last Admin Dose Admin Magnesium Chloride (Mag Delay) 64 mg 1X ONCE 05/08/18 21:00 05/08/18 21:01 DC 05/08/18 21:00 64 MG Proparacaine HCl/ Fluorescein Sodium (Flucaine Eye Drops) 1 drop 1X ONCE 05/08/18 21:15 05/08/18 21:16 DC 05/08/18 21:03 1 DROP Allergies Allergies Allergies Coded Allergies Type Severity Reaction Last Updated Verified No Known Drug Allergies 08/01/17 No Physical Exam Physical Exam Constitutional: Well developed, well nourished, no acute distress, non-toxic appearance. [] HENT: Normocephalic, atraumatic, bilateral external ears normal, oropharynx moist, no oral exudates, nose normal. [] Eyes: PERRLA, EOMI, conjunctiva normal, no discharge. [] Neck: Normal range of motion, no tenderness, supple, no stridor. [] Cardiovascular:Heart rate regular rhythm, no murmur [] Lungs & Thorax: Bilateral breath sounds clear to auscultation [] Abdomen: Bowel sounds normal, soft, no tenderness, no masses, no pulsatile masses. [] Skin: Warm, dry, no erythema, no rash. [] Back: No tenderness, no CVA tenderness. [] Extremities: No tenderness, no cyanosis, no clubbing, ROM intact, no edema. [] Neurologic: Alert and oriented X 3, normal motor function, normal sensory function, no focal deficits noted. [] Psychologic: Affect normal, judgement normal, mood normal. [] Current Patient Data Vital Signs Vital Signs Date Time Temp Pulse Resp B/P (MAP) Pulse Ox O2 Delivery O2 Flow Rate FiO2 05/08/18 19:50 97.8 85 20 138/83 (101) 98 Room Air 97.8 Lab Values Laboratory Tests Test 05/08/18 19:50 05/08/18 19:58 Urine Collection Type Unknown Urine Color Yellow Urine Clarity Clear Urine pH 6.0 Urine Specific [place] 1.015 Urine Protein Negative mg/dL (NEG-TRACE) Urine Glucose (UA) Negative mg/dL (NEG) Urine Ketones (Stick) Negative mg/dL (NEG) Urine Blood Negative (NEG) Urine Nitrite Negative (NEG) Urine Bilirubin Negative (NEG) Urine Urobilinogen Dipstick 0.2 mg/dL (0.2 mg/dL) Urine Leukocyte Esterase Negative (NEG) Urine RBC 0 /HPF (0-2) Urine WBC 1-4 /HPF (0-4) Urine Squamous Epithelial Cells Mod /LPF Urine Bacteria Moderate /HPF (0-FEW) Urine Mucus Slight /LPF White Blood Count 7.9 x10^3/uL (4.0-11.0) Red Blood Count 3.93 x10^6/uL (3.50-5.40) Hemoglobin 12.2 g/dL (12.0-15.5) Hematocrit 34.3 % (36.0-47.0) L Mean Corpuscular Volume 87 fL (79-100) Mean Corpuscular Hemoglobin 31 pg (25-35) Mean Corpuscular Hemoglobin Concent 36 g/dL (31-37) Red Cell Distribution Width 13.6 % (11.5-14.5) Platelet Count 133 x10^3/uL (140-400) L Neutrophils (%) (Auto) 64 % (31-73) Lymphocytes (%) (Auto) 29 % (24-48) Monocytes (%) (Auto) 5 % (0-9) Eosinophils (%) (Auto) 2 % (0-3) Basophils (%) (Auto) 1 % (0-3) Neutrophils # (Auto) 5.0 x10^3uL (1.8-7.7) Lymphocytes # (Auto) 2.3 x10^3/uL (1.0-4.8) Monocytes # (Auto) 0.4 x10^3/uL (0.0-1.1) Eosinophils # (Auto) 0.2 x10^3/uL (0.0-0.7) Basophils # (Auto) 0.0 x10^3/uL (0.0-0.2) Sodium Level 140 mmol/L (136-145) Potassium Level 3.5 mmol/L (3.5-5.1) Chloride Level 104 mmol/L (98-107) Carbon Dioxide Level 29 mmol/L (21-32) Anion Gap 7 (6-14) Blood Urea Nitrogen 7 mg/dL (7-20) Creatinine 0.8 mg/dL (0.6-1.0) Estimated GFR (Cockcroft-Gault) 84.2 BUN/Creatinine Ratio 9 (6-20) Glucose Level 95 mg/dL (70-99) Calcium Level 8.8 mg/dL (8.5-10.1) Magnesium Level 1.6 mg/dL (1.8-2.4) L Total Bilirubin 0.2 mg/dL (0.2-1.0) Aspartate Amino Transferase (AST) 14 U/L (15-37) L Alanine Aminotransferase (ALT) 13 U/L (14-59) L Alkaline Phosphatase 39 U/L (46-116) L Total Protein 7.0 g/dL (6.4-8.2) Albumin 3.4 g/dL (3.4-5.0) Albumin/Globulin Ratio 0.9 (1.0-1.7) L Laboratory Tests 05/08/18 19:58 Laboratory Tests 05/08/18 19:58 EKG EKG [] Radiology/Procedures Radiology/Procedures [] Course & Med Decision Making Course & Med Decision Making Pertinent Labs and Imaging studies reviewed. (See chart for details) [] Dragon Disclaimer Dragon Disclaimer This electronic medical record was generated, in whole or in part, using a voice recognition dictation system. Departure Departure Impression: Primary Impression: Hypomagnesemia Additional Impression: Eye swelling, left Referrals: UNKNOWN PCP NAME (PCP) Patient Instructions: Clindamycin capsules, Hypomagnesemia Additional Instructions: Follow-up with your eye doctor tomorrow for a recheck of your eye. If worsening return to the emergency department. Take the medication as prescribed. Scripts Clindamycin Hcl (CLINDAMYCIN HCL) 300 Mg Capsule 1 CAP PO TID for infection, #30 CAP Prov: EDYTA QUEEN APRN 05/08/18 Problem Qualifiers EDYTA QUEEN APRN May 08, 2018 21:31
== END 2018-05-08 21:39 | disposition home or self-care (01) ==
LOC: ER 19:35
DX: H57.89 Other specified disorders of eye and adnexa (principal); E83.42 Hypomagnesemia; Z90.49 Acquired absence of other specified parts of digestive tract
CPT/HCPCS: 36415; 80053; 81001; 83735; 85025; 87086; 99283

== ENCOUNTER 2018-08-09 09:10 | Emergency (ER) | payer OTHER ==
[~2018-08-09] VITALS: Ht 165.1 cm; Wt 50.8 kg
[~2018-08-09 09:10] MED LIST changes: +CLIN300C8 PO; -PROM12.56 PO; +PROM12.58 PO
[2018-08-09] MEDS ORDERED: IV NORMAL SALINE 1000ML BAG 1,000 ML IV SCH (09:32)
--- NOTE | 2018-08-09 09:38 | PHYS DOC ---
Past Medical History Past Medical History: No Pertinent History, Other Additional Past Medical Histor: fibroids Past Surgical History: Cholecystectomy, , Hysterectomy, Tubal ligation Alcohol Use: Rarely Drug Use: None Adult General Chief Complaint Chief Complaint: ABDOMINAL PAIN HPI HPI Patient is a 28 year old female who presents with left-sided abdominal pain that started yesterday. Patient also notes nausea, vomiting, and diarrhea since that time. No blood in the stool or emesis. No recent travel. No fever. Patient has a history of previous cholecystectomy as well as hysterectomy. No vaginal bleeding or discharge. No dysuria. Patient gets some temporary pain relief when she has an episode of emesis or stool. Pain is moderate to severe in intensity, and sharp in nature. Moving seems to make it worse. Patient also notes that she' s had an approximately 20 pound weight loss in the past several months without trying, but this was only noticed as she was on the scale today in the emergency department.[] Review of Systems Review of Systems Constitutional: Denies fever or chills [] Eyes: Denies change in visual acuity, redness, or eye pain [] HENT: Denies nasal congestion or sore throat [] Respiratory: Denies cough or shortness of breath [] Cardiovascular: No chest pain or palpitations[] GI: See history of present illness[] : Denies dysuria or hematuria [] Musculoskeletal: Denies back pain or joint pain [] Integument: Denies rash or skin lesions [] Neurologic: Denies headache, focal weakness or sensory changes [] Endocrine: Denies polyuria or polydipsia [] All other systems were reviewed and found to be within normal limits, except as documented in this note. Current Medications Current Medications Current Medications Medications (Trade) Dose Ordered Sig/Bryce Start Time Stop Time Status Last Admin Dose Admin Info (CONTRAST GIVEN -- Rx MONITORING) 1 each PRN DAILY PRN 08/09/18 10:15 08/11/18 10:14 Iohexol (Omnipaque 300 Mg/ml) 75 ml 1X ONCE 08/09/18 10:00 08/09/18 10:01 DC 08/09/18 10:00 75 ML Ketorolac Tromethamine (Toradol 30mg Vial) 30 mg 1X ONCE 08/09/18 09:45 08/09/18 09:46 DC 08/09/18 09:46 30 MG Prochlorperazine Edisylate (Compazine) 5 mg 1X ONCE 08/09/18 09:45 08/09/18 09:46 DC 08/09/18 09:46 5 MG Sodium Chloride 1,000 ml @ 1,000 mls/hr Q1H 08/09/18 09:32 08/09/18 10:31 DC 08/09/18 09:46 1,000 MLS/HR Allergies Allergies Allergies Coded Allergies Type Severity Reaction Last Updated Verified No Known Drug Allergies 08/01/17 No Physical Exam Physical Exam Constitutional: Well developed, well nourished, no acute distress, non-toxic appearance. [] HENT: Normocephalic, atraumatic, bilateral external ears normal, oropharynx moist, no oral exudates, nose normal. [] Eyes: PERRLA, EOMI, conjunctiva normal, no discharge. [] Neck: Normal range of motion, no tenderness, supple, no stridor. [] Cardiovascular:Heart rate regular rhythm, no murmur [] Lungs & Thorax: Bilateral breath sounds clear to auscultation [] Abdomen: Bowel sounds normal, soft, tenderness on the left side both above and below the level of the umbilicus, no rebound, no guarding, no rigidity, sits up without any difficulty. No masses, no pulsatile masses. [] Skin: Warm, dry, no erythema, no rash. [] Back: No tenderness, no CVA tenderness. [] Extremities: No tenderness, no cyanosis, no clubbing, ROM intact, no edema. [] Neurologic: Alert and oriented X 3, normal motor function, normal sensory function, no focal deficits noted. [] Psychologic: Affect normal, judgement normal, mood normal. [] Current Patient Data Vital Signs Vital Signs Date Time Temp Pulse Resp B/P (MAP) Pulse Ox O2 Delivery O2 Flow Rate FiO2 08/09/18 09:15 97.7 72 16 118/76 (90) 99 Room Air 97.7 Lab Values Laboratory Tests Test 08/09/18 09:15 08/09/18 09:38 08/09/18 09:40 Urine Collection Type Unknown Urine Color Brianna Urine Clarity Clear Urine pH 5.5 Urine Specific [place] >=1.030 Urine Protein >=300 mg/dL (NEG-TRACE) Urine Glucose (UA) Negative mg/dL (NEG) Urine Ketones (Stick) Trace mg/dL (NEG) Urine Blood Negative (NEG) Urine Nitrite Negative (NEG) Urine Bilirubin Small (NEG) Urine Urobilinogen Dipstick 1.0 mg/dL (0.2 mg/dL) Urine Leukocyte Esterase Negative (NEG) Urine RBC 0 /HPF (0-2) Urine WBC Occ /HPF (0-4) Urine Squamous Epithelial Cells Few /LPF Urine Bacteria Few /HPF (0-FEW) Urine Opiates Screen Neg (NEG) Urine Methadone Screen Neg (NEG) Urine Barbiturates Neg (NEG) Urine Phencyclidine Screen Neg (NEG) Urine Amphetamine/Methamphetamine Neg (NEG) Urine Benzodiazepines Screen Neg (NEG) Urine Cocaine Screen Neg (NEG) Urine Cannabinoids Screen Pos (NEG) Urine Ethyl Alcohol Neg (NEG) White Blood Count 15.2 x10^3/uL (4.0-11.0) H Red Blood Count 4.85 x10^6/uL (3.50-5.40) Hemoglobin 14.3 g/dL (12.0-15.5) Hematocrit 42.9 % (36.0-47.0) Mean Corpuscular Volume 89 fL (79-100) Mean Corpuscular Hemoglobin 30 pg (25-35) Mean Corpuscular Hemoglobin Concent 33 g/dL (31-37) Red Cell Distribution Width 13.8 % (11.5-14.5) Platelet Count 221 x10^3/uL (140-400) Neutrophils (%) (Auto) 77 % (31-73) H Lymphocytes (%) (Auto) 15 % (24-48) L Monocytes (%) (Auto) 7 % (0-9) Eosinophils (%) (Auto) 1 % (0-3) Basophils (%) (Auto) 1 % (0-3) Neutrophils # (Auto) 11.7 x10^3uL (1.8-7.7) H Lymphocytes # (Auto) 2.2 x10^3/uL (1.0-4.8) Monocytes # (Auto) 1.0 x10^3/uL (0.0-1.1) Eosinophils # (Auto) 0.1 x10^3/uL (0.0-0.7) Basophils # (Auto) 0.1 x10^3/uL (0.0-0.2) Sodium Level 140 mmol/L (136-145) Potassium Level 3.1 mmol/L (3.5-5.1) L Chloride Level 101 mmol/L (98-107) Carbon Dioxide Level 23 mmol/L (21-32) Anion Gap 16 (6-14) H Blood Urea Nitrogen 9 mg/dL (7-20) Creatinine 0.7 mg/dL (0.6-1.0) Estimated GFR (Cockcroft-Gault) 98.3 BUN/Creatinine Ratio 13 (6-20) Glucose Level 106 mg/dL (70-99) H Calcium Level 9.4 mg/dL (8.5-10.1) Total Bilirubin 0.3 mg/dL (0.2-1.0) Aspartate Amino Transferase (AST) 11 U/L (15-37) L Alanine Aminotransferase (ALT) 12 U/L (14-59) L Alkaline Phosphatase 52 U/L (46-116) Total Protein 8.2 g/dL (6.4-8.2) Albumin 4.1 g/dL (3.4-5.0) Albumin/Globulin Ratio 1.0 (1.0-1.7) Lipase 93 U/L (73-393) Influenza Type A Antigen Negative (NEGATIVE) Influenza Type B Antigen Negative (NEGATIVE) Laboratory Tests 08/09/18 09:38 Laboratory Tests 08/09/18 09:38 EKG EKG [] Radiology/Procedures Radiology/Procedures CT ABD PELV W/ IV CONTRST ONLY Indication: Left lower abdominal pain, nausea, vomiting, diarrhea getting worse Technique: Postcontrast CT imaging was performed of the abdomen and pelvis, multiplanar reconstruction images submitted. No oral contrast was given. One or more of the following individualized dose reduction techniques were utilized for this examination: 1. Automated exposure control 2. Adjustment of the mA and/or kV according to patient size 3. Use of iterative reconstruction technique. Comparison: June 06, 2017 Findings: There is no abnormality of the limited visualized lung bases. No focal abnormality is identified of the liver, spleen, pancreas. There again has been cholecystectomy. Both kidneys enhance, no hydronephrosis. There is no adrenal nodularity. Accurate evaluation of bowel is limited without oral contrast. There is no free air. There is long segment small bowel wall thickening of the proximal small bowel in the left upper quadrant. There is other fluid-filled small bowel and also fluid in the colon. Appendix cannot be confidently identified if still present. Small bowel is not significantly dilated. There is no significant free fluid. IMPRESSION: 1. There is small bowel wall thickening in the left upper quadrant, evidence of enteritis. There is other fluid in the large and small bowel as may be seen with diarrheal state. Appendix cannot be confidently identified if still present.[] Course & Med Decision Making Course & Med Decision Making Pertinent Labs and Imaging studies reviewed. (See chart for details) ED course: Patient arrived, was placed in bed, and tolerated exam well. She was improved with the medications administered. She was transported to and from [place] with any complications. After the return of laboratory and imaging findings these were discussed with the patient who voiced understanding. All questions were answered. Patient was discharged in improved condition. Decision-making: There is no evidence of an obstruction, perforation, appendicitis given that the pain is on her left side rather than the right, no evidence of influenza nor significant electrolyte abnormality. Review of her records shows that she was 107 pounds when evaluated in April 2018, 120 pounds in March 2018, so this weight loss that she speaking of does not appear to be a new issue given that she weighs 112 pounds today. There is no evidence of intra-abdominal pathology that would account for weight changes.[] Dragon Disclaimer Dragon Disclaimer This electronic medical record was generated, in whole or in part, using a voice recognition dictation system. Departure Departure Impression: Primary Impression: Nausea vomiting and diarrhea Additional Impression: Abdominal pain Disposition: 01 HOME, SELF-CARE Condition: IMPROVED Referrals: UNKNOWN PCP NAME (PCP) Patient Instructions: Diet for Diarrhea, Adult, Nausea and Vomiting Additional Instructions: Drink plenty of fluids, frequent small sips. No fatty foods, no milk, and no pepper for the next 48 hours. For the next 48 hours eat a diet rich in carbohydrates with foods such as bananas, rice, applesauce, and toast. Follow- up with your regular doctor in 2 days. If you do not have regular doctor list of local clinics will be provided. Return to the ER if blood in the stool or emesis, unable to tolerate liquids, or any other concerns. Scripts Metoclopramide Hcl (REGLAN) 10 Mg Tablet 10 MG PO QIDACHS, #30 TAB 0 Refills Prov: EIDENBERG,SEVERO DO 08/09/18 Hyoscyamine Sulfate (LEVSIN) 0.125 Mg Tablet 0.125 MG PO QID, #30 TAB Prov: SEVERO NORIEGA DO 08/09/18 Problem Qualifiers Additional Impression: Abdominal pain Abdominal location: unspecified location Qualified Codes: R10.9 - Unspecified abdominal pain SEVERO NORIEGA DO Aug 09, 2018 09:38
[2018-08-09] MEDS ORDERED: PROCHLORPERAZINE 10 MG/2 ML VIAL. IV ONE (09:45)
[2018-08-09] MEDS ORDERED: KETOROLAC 30 MG/ML VIAL. IV ONE (09:45)
[2018-08-09 09:53] LABS: BASO # 0.1 x10^3/uL (0.0-0.2); BASO % 1 % (0-3); EOS # 0.1 x10^3/uL (0.0-0.7); EOS % 1 % (0-3); HEMATOCRIT 42.9 % (36.0-47.0); HEMOGLOBIN 14.3 g/dL (12.0-15.5); LYMPH # 2.2 x10^3/uL (1.0-4.8); LYMPH % 15 % (24-48); MEAN CORPUSCULAR HEMOGLOBIN 30 pg (25-35); MEAN CORPUSCULAR HGB CONC 33 g/dL (31-37); MEAN CORPUSCULAR VOLUME 89 fL (79-100); MONO % 7 % (0-9); NEUT # 11.7 x10^3uL (1.8-7.7); NEUT % 77 % (31-73); PLATELET COUNT 221 x10^3/uL (140-400); RED BLOOD COUNT 4.85 x10^6/uL (3.50-5.40); RED CELL DISTRIBUTION WIDTH 13.8 % (11.5-14.5); WHITE BLOOD COUNT 15.2 x10^3/uL (4.0-11.0)
[2018-08-09 09:54] LABS: BILIRUBIN,URINE SMALL (NEG); CLARITY,URINE CLEAR; COLOR,URINE AMBER; PH,URINE 5.5; PROTEIN,URINE >=300 mg/dL (NEG-TRACE)
[2018-08-09 09:55] LABS: NITRITE,URINE NEGATIVE (NEG)
[2018-08-09] MEDS ORDERED: IOHEXOL 300 MG/ML 100ML VIAL. IV ONE (10:00)
[2018-08-09 10:01] LABS: CALCIUM 9.4 mg/dL (8.5-10.1); CREATININE 0.7 mg/dL (0.6-1.0); GFR 98.3; POTASSIUM 3.1 mmol/L (3.5-5.1)
[2018-08-09 10:07] LABS: ALBUMIN 4.1 g/dL (3.4-5.0); TOTAL BILIRUBIN 0.3 mg/dL (0.2-1.0); TOTAL PROTEIN 8.2 g/dL (6.4-8.2)
[2018-08-09 10:09] LABS: PROTHROMBIN TIME PATIENT 12.3 SEC (11.7-14.0)
[2018-08-09 10:14] LABS: INFLUENZA A PATIENT NEGATIVE (NEGATIVE); INFLUENZA B PATIENT NEGATIVE (NEGATIVE)
[2018-08-09] MEDS ORDERED: CONTRAST GIVEN. MC PRN (10:15)
[2018-08-09 10:25] LABS: BACTERIA,URINE FEW /HPF (0-FEW); RBC,URINE 0 /HPF (0-2); SQUAMOUS EPITHELIAL CELL,UR FEW /LPF; WBC,URINE OCC /HPF (0-4)
[2018-08-09 10:31] LABS: BARBITURATES NEG (NEG); BENZODIAZEPINES NEG (NEG); CANNABINOIDS POS (NEG); COCAINE NEG (NEG); METHADONE NEG (NEG); OPIATES NEG (NEG); PHENCYCLIDINE NEG (NEG)
[2018-08-09 10:33] LABS: AMPHETAMINE/METHAMPHETAMINE NEG (NEG)
--- NOTE | 2018-08-09 10:42 | RAD ---
CT ABD PELV W/ IV CONTRST ONLY Indication: Left lower abdominal pain, nausea, vomiting, diarrhea getting worse Technique: Postcontrast CT imaging was performed of the abdomen and pelvis, multiplanar reconstruction images submitted. No oral contrast was given. One or more of the following individualized dose reduction techniques were utilized for this examination: 1. Automated exposure control 2. Adjustment of the mA and/or kV according to patient size 3. Use of iterative reconstruction technique. Comparison: June 06, 2017 Findings: There is no abnormality of the limited visualized lung bases. No focal abnormality is identified of the liver, spleen, pancreas. There again has been cholecystectomy. Both kidneys enhance, no hydronephrosis. There is no adrenal nodularity. Accurate evaluation of bowel is limited without oral contrast. There is no free air. There is long segment small bowel wall thickening of the proximal small bowel in the left upper quadrant. There is other fluid-filled small bowel and also fluid in the colon. Appendix cannot be confidently identified if still present. Small bowel is not significantly dilated. There is no significant free fluid. IMPRESSION: 1. There is small bowel wall thickening in the left upper quadrant, evidence of enteritis. There is other fluid in the large and small bowel as may be seen with diarrheal state. Appendix cannot be confidently identified if still present. Electronically signed by: Julio Cesar Dominguez MD (08/09/2018 10:38 AM) [facility]
[2018-08-09] MEDS ORDERED: HYOS0.1264 PO (11:19)
[2018-08-09] MEDS ORDERED: METO10TA81 PO (11:19)
[2018-08-09 11:30] VITALS: BP 111/73
== END 2018-08-09 11:47 | disposition home or self-care (01) ==
LOC: ER 09:10
DX: R11.2 Nausea with vomiting, unspecified (principal); R19.7 Diarrhea, unspecified; R10.33 Periumbilical pain; Z90.49 Acquired absence of other specified parts of digestive tract; Z90.710 Acquired absence of both cervix and uterus; Z98.51 Tubal ligation status
CPT/HCPCS: 36415; 74177; 80053; 80307; 81001; 83690; 85025; 85610; 87804; 96361; 96374; 96375; 99284; J0780; J1885; J7030; Q9967